=== PATIENT | male | born 1975 | race Caucasian/White ===

== ENCOUNTER → 2017-10-10 | Outpatient (CLI) | payer OTHER ==
[~2017-10-10] MED LIST: ACTO15TA22 PO; CALCTAB19 PO; CYCL10TA PO; FOLDING REACHER1 MIS; GETGO ROLLING W1 MI1; GLIP5 PO; IBUP1TAB5 PO; MAGN400S PO; METF1000 PO; PANT40TA3 PO; PERC5TAB12 PO; TRAM50 PO; TUB TRANSFER BO1 MIS; VITA10002 PO; WHEEMIS3; XARE15TA PO; [UNRECOGNIZED DRUG - OTHER]; [UNRECOGNIZED DRUG - OTHER]; [UNRECOGNIZED DRUG - SUPPLY]; [UNRECOGNIZED DRUG - SUPPLY]
[2017-10-10 17:14] LABS: ALT (GPT) 55 U/L (12-78); ANION GAP 5 MEQ/L (5-15); AST (GOT) 42 U/L (15-37); BICARBONATE 31.2 MEQ/L (21.0-32.0); BLOOD UREA NITROGEN 18 MG/DL (7-18); CHLORIDE 103 MEQ/L (98-107); GLOMERULAR FILTRATION RATE 97 ML/MIN (>89); GLUCOSE,FASTING 169 MG/DL (74-99); POTASSIUM 4.6 MEQ/L (3.5-5.1); SODIUM (NA) 139 MEQ/L (136-145)
[2017-10-10 17:16] LABS: ALKALINE PHOSPHATASE 86 U/L (45-117); TOTAL BILIRUBIN ADULT 0.3 MG/DL (0.2-1.0)
== END ==
LOC: CLAB 14:02
PROVIDERS: ATTEND Physical Medicine & Rehabilitation
DX: G83.4 Cauda equina syndrome (principal); S34.21XA Injury of nerve root of lumbar spine, initial encounter; X58.XXXA Exposure to other specified factors, initial encounter
CPT/HCPCS: 36415; 80053; 82306